=== PATIENT | female | born 1955 | race African-American/Black ===

== ENCOUNTER 2017-04-06 08:42 | Emergency (ER) | payer MEDICARE, MEDICAID ==
[~2017-04-06] VITALS: Ht 167.6 cm; Wt 61.0 kg
[~2017-04-06 08:42] MED LIST: CARB200T PO; GABA800T PO; OXYC-159 PO
[2017-04-06] MEDS ORDERED: ONDANSETRON HCL 4MG/2ML VIAL IV STA (09:55)
[2017-04-06] MEDS ORDERED: SODIUM CHLORIDE 0.9% 1,000 ML IV ONE ×2 (09:55→11:07)
[2017-04-06 10:16] LABS: HEMATOCRIT. 48.4 % (36.0-48.0); HEMOGLOBIN. 15.5 g/dL (12.0-16.0); MEAN CORPUSCULAR HEMOGLOBIN 30.2 pg (28.0-32.0); MEAN CORPUSCULAR VOLUME 94.4 fL (81.0-99.0); MEAN PLATELET VOLUME 8.6 fl (7.4-10.4); PLATELET 278 x1000/uL (130-400); RED BLOOD CELL COUNT 5.13 mill/uL (4.2-5.4); RED CELL DISTRIBUTION WIDTH 13.6 % (11.6-14.6)
[2017-04-06 10:20] LABS: PROTHROMBIN TIME 10.7 sec (9.4-11.6)
[2017-04-06 10:27] LABS: CLARITY URINE CLEAR (CLEAR); COLOR URINE YELLOW (YELLOW); GLUCOSE URINE 2+ (NEGATIVE); KETONES URINE NEGATIVE (NEGATIVE); LEUKOCYTE ESTERASE URINE NEGATIVE (NEGATIVE); NITRITE URINE NEGATIVE (NEGATIVE); OCCULT BLOOD URINE NEGATIVE (NEGATIVE); PH URINE 5.5 (4.5-8.0); PROTEIN URINE 1+ (NEGATIVE); SPECIFIC GRAVITY URINE 1.036 (1.005-1.030); UROBILINOGEN URINE 0.2 E.U./dL (0.2-1.0)
[2017-04-06 10:27] LABS: CARBON DIOXIDE 29 mEq/L (21-32); CHLORIDE 104 mEq/L (98-107); ETHANOL BLOOD < 10 mg/dL
[2017-04-06 10:44] LABS: *AMPHETAMINES SCREEN URINE NEGATIVE (NEGATIVE); *BARBITURATES SCREEN URINE NEGATIVE (NEGATIVE); *BENZODIAZEPINES SCREEN URINE NEGATIVE (NEGATIVE); *COCAINE SCREEN URINE PRESUMTIVE POSITIVE (NEGATIVE); CANNABINOID URINE SCREEN PRESUMTIVE POSITIVE (NEGATIVE); METHADONE URINE SCREEN NEGATIVE (NEGATIVE); OPIATES URINE SCREEN NEGATIVE (NEGATIVE); PHENCYCLIDINE URINE SCREEN NEGATIVE (NEGATIVE)
[2017-04-06 11:12] LABS: PLATELET ESTIMATE NORMAL
[2017-04-06] MEDS ORDERED: CARBAMAZEPINE 200MG TABLET PO ONE (11:30)
[2017-04-06 12:40] VITALS: BP 128/66
== END 2017-04-06 12:52 | disposition home or self-care (01) ==
LOC: ER 08:57
DX: F19.10 Other psychoactive substance abuse, uncomplicated (principal); I10 Essential (primary) hypertension; R56.9 Unspecified convulsions; R11.2 Nausea with vomiting, unspecified; Z88.5 Allergy status to narcotic agent
CPT/HCPCS: 36415; 74176; 80053; 80156; 80305; 81001; 83690; 85025; 85610; 96361; 96374; 99285; G0482; J2405; J7030

== ENCOUNTER 2017-05-19 13:58 | Emergency (ER) | payer MEDICARE, MEDICAID ==
[~2017-05-19] VITALS: Ht 165.1 cm; Wt 82.0 kg
[2017-05-19 16:25] VITALS: BP 106/62
== END 2017-05-19 19:24 | disposition left against medical advice (07) ==
LOC: ER 15:42
DX: M79.674 Pain in right toe(s) (principal); Z53.21 Procedure and treatment not carried out due to patient leaving prior to being seen by health care provider

== ENCOUNTER 2018-02-13 06:32 | Inpatient (IN) | payer MEDICARE, MEDICAID ==
[~2018-02-13] VITALS: Ht 165.1 cm; Wt 90.7 kg
[2018-02-13] MEDS ORDERED: LACTATED RINGERS 1,000 ML IV SCH (06:45)
[2018-02-13 07:50] LABS: HEMOGLOBIN 13.1 g/dL (12.0-16.0); MEAN CORPUSCULAR HEMOGLOBIN 31.5 pg (28.0-32.0); MEAN CORPUSCULAR VOLUME 95.9 fL (81.0-99.0); PLATELET 256 x1000/uL (130-400); RED BLOOD CELL COUNT 4.17 mill/uL (4.2-5.4); RED CELL DISTRIBUTION WIDTH 12.8 % (11.6-14.6)
[2018-02-13 07:56] LABS: CLARITY URINE CLEAR (CLEAR); COLOR URINE YELLOW (YELLOW); KETONES URINE NEGATIVE (NEGATIVE); LEUKOCYTE ESTERASE URINE NEGATIVE (NEGATIVE); NITRITE URINE NEGATIVE (NEGATIVE); OCCULT BLOOD URINE NEGATIVE (NEGATIVE); PROTEIN URINE NEGATIVE (NEGATIVE); SPECIFIC GRAVITY URINE 1.019 (1.005-1.030); UROBILINOGEN URINE 0.2 E.U./dL (0.2-1.0)
[2018-02-13 08:00] LABS: PARTIAL THROMBOPLASTIN TIME 27.1 sec (23.4-31.0); PROTHROMBIN TIME 9.9 sec (9.1-11.1)
[2018-02-13 08:03] LABS: CHLORIDE 108 mEq/L (98-107)
[2018-02-13] MEDS ORDERED: TRANEXAMIC ACID 1,000 MG in SODIUM CHLORIDE 0.9% 100 ML IV NR (08:30)
[2018-02-13] MEDS ORDERED: BUPIVACAINE HCL/DEXTROSE/PF 0.75% 2ML AMP INJ ONE (08:30)
[2018-02-13] MEDS ORDERED: METHYLENE BLUE 50 MG/10 ML AMP IV ONE (09:34)
[2018-02-13] MEDS ORDERED: MORPHINE SULFATE/PF 1MG/ML 10ML AMP ONE (09:34)
[2018-02-13] MEDS ORDERED: BUPIVACAINE/EPINEPH/PF 0.25%/0.0005 10ML ONE (09:34)
[2018-02-13] MEDS ORDERED: BACITRACIN 50,000 UNITS/VIAL ONE (09:35)
[2018-02-13] MEDS ORDERED: EPINEPHRINE 1:1000 1 MG/ML AMP ONE (09:35)
[2018-02-13] MEDS ORDERED: NORMAL SALINE 0.9% 10 ML SYR ONE (09:36)
[2018-02-13] MEDS ORDERED: MIDAZOLAM HCL 2 MG/2 ML VIAL ONE (09:41)
[2018-02-13] MEDS ORDERED: ROCURONIUM BROMIDE 10MG/ML VIAL 5ML IV ONE (09:41)
[2018-02-13] MEDS ORDERED: PROPOFOL 200MG/20ML VIAL IV ONE ×2 (09:41→12:48)
[2018-02-13] MEDS ORDERED: FENTANYL CITRATE/PF 50MCG/ML 2ML VIAL ONE (09:41)
[2018-02-13] MEDS ORDERED: NEOSTIGMINE METHYLSULFATE 1MG/ML 10 ML VIAL ONE (09:41)
[2018-02-13] MEDS ORDERED: GLYCOPYRROLATE 0.2 MG/ML 2ML VIAL ONE (09:42)
[2018-02-13] MEDS ORDERED: LIDOCAINE HCL/PF 1% 10 MG/ML 5ML VIAL ONE (09:43)
[2018-02-13] MEDS ORDERED: SUCCINYLCHOLINE CHLORIDE 200MG/10ML IV ONE (09:43)
[2018-02-13] MEDS ORDERED: ONDANSETRON HCL 4MG/2ML INJ ONE (09:43)
[2018-02-13] MEDS ORDERED: METOCLOPRAMIDE HCL 10MG/2ML VIAL ONE (09:43)
[2018-02-13] MEDS ORDERED: CEFAZOLIN SODIUM 1000MG/VIAL ONE (09:43)
[2018-02-13] MEDS ORDERED: ROPIVACAINE HCL 10MG/ML 20 ML VIAL EPI ONE (09:59)
[2018-02-13] MEDS ORDERED: NAPR220T66 PO (11:17)
[2018-02-13] MEDS ORDERED: VANCOMYCIN HCL 500 MG/VIAL ONE (11:42)
[2018-02-13] MEDS ORDERED: GENTAMICIN SULF 40MG/ML 2ML VIAL ONE (11:45)
[2018-02-13] MEDS ORDERED: SODIUM CHLORIDE 0.9% 1,000 ML IV ONE (13:07)
[2018-02-13] MEDS ORDERED: ONDANSETRON HCL 4MG/2ML INJ IV PRN ×2 (13:15→13:45)
[2018-02-13] MEDS ORDERED: MEPERIDINE HCL/PF 25MG/ML CPJ IV PRN ×2 (13:15)
[2018-02-13] MEDS ORDERED: HYDROMORPHONE HCL/PF 2MG/ML CPJ IV PRN (13:15)
[2018-02-13 13:20] VITALS: BP 122/68
[2018-02-13] MEDS ORDERED: MORPHINE SULFATE 2 MG/ML CPJ (NOT FOR IM USE) IV PRN (13:45)
[2018-02-13] MEDS ORDERED: MORPHINE SULFATE 4 MG/ML CPJ (NOT FOR IM USE) IV PRN (13:45)
[2018-02-13] MEDS ORDERED: MAGNESIUM HYDROXIDE 400MG/5ML 30ML UDC PO PRN (13:45)
[2018-02-13] MEDS ORDERED: HYDROCODONE/ACETAMINOPHEN 10/325MG TABLET PO PRN (13:45)
[2018-02-13] MEDS ORDERED: ACETAMINOPHEN 325MG TABLET PO PRN (13:45)
[2018-02-13 15:20] VITALS: BP 122/68
[2018-02-13] MEDS: HYDROCODONE/ACETAMINOPHEN 10/325MG TABLET PO PRN ×2 (17:41→22:28)
[2018-02-13] MEDS: FERROUS SULFATE 325MG TABLET PO SCH (18:19)
[2018-02-13] MEDS: DOCUSATE SODIUM 100MG CAPSULE PO SCH (18:19)
[2018-02-13] MEDS: CARBAMAZEPINE 200MG TABLET PO SCH (18:19)
[2018-02-13] MEDS: GABAPENTIN 400MG CAPSULE PO SCH (18:21)
[2018-02-13 20:00] VITALS: BP 109/61
[2018-02-13] MEDS ORDERED: ZOLPIDEM TARTRATE 5MG TABLET PO PRN (21:00)
[2018-02-13] MEDS: CEFAZOLIN 2,000 MG in DEXT 5% WATER 100 ML IV SCH (22:27)
[2018-02-14] VITALS: BP 116/61
[2018-02-14 04:00] VITALS: BP 122/55
[2018-02-14] MEDS: CEFAZOLIN 2,000 MG in DEXT 5% WATER 100 ML IV SCH (05:04)
[2018-02-14] MEDS: HYDROCODONE/ACETAMINOPHEN 10/325MG TABLET PO PRN ×3 (05:04→13:43)
[2018-02-14] MEDS: GABAPENTIN 400MG CAPSULE PO SCH ×3 (05:13→16:27)
[2018-02-14 08:00] VITALS: BP 109/73
[2018-02-14 08:25] LABS: BASOPHILS % 0.2 % (0.0-2.0); EOSINOPHILS % 1.6 % (0.0-5.0); HEMATOCRIT. 34.9 % (36.0-48.0); HEMOGLOBIN. 11.4 g/dL (12.0-16.0); LYMPHOCYTES % 13.3 % (20.0-50.0); MEAN CORPUSCULAR HEMOGLOBIN 31.6 pg (28.0-32.0); MEAN CORPUSCULAR VOLUME 96.2 fL (81.0-99.0); MEAN PLATELET VOLUME 8.7 fl (7.4-10.4); MONOCYTES % 8.9 % (2.0-8.0); PLATELET 235 x1000/uL (130-400); RED BLOOD CELL COUNT 3.63 mill/uL (4.2-5.4); RED CELL DISTRIBUTION WIDTH 12.8 % (11.6-14.6)
[2018-02-14] MEDS: CARBAMAZEPINE 200MG TABLET PO SCH ×3 (09:16→16:27)
[2018-02-14] MEDS: DOCUSATE SODIUM 100MG CAPSULE PO SCH ×2 (09:16→16:28)
[2018-02-14] MEDS: FERROUS SULFATE 325MG TABLET PO SCH ×3 (09:16→16:28)
[2018-02-14] MEDS: ENOXAPARIN 30MG/0.3ML SYR SUBCUT SCH ×2 (09:18→21:12)
[2018-02-14 10:23] LABS: CHLORIDE 106 mEq/L (98-107)
[2018-02-14 10:47] LABS: PHOSPHORUS 2.7 mg/dL (2.5-4.9)
[2018-02-14 12:00] VITALS: BP 126/64
[2018-02-14 16:00] VITALS: BP 138/58
[2018-02-14] MEDS: HYDROMORPHONE HCL/PF 2MG/ML CPJ IV PRN ×2 (16:28→21:11)
[2018-02-14] MEDS ORDERED: DOCUSATE SODIUM 100MG CAPSULE PO SCH (17:00)
[2018-02-14 20:00] VITALS: BP 147/57
[2018-02-15] VITALS (7 sets, daily range): BP systolic 104–142; BP diastolic 58–77
[2018-02-15] MEDS: HYDROMORPHONE HCL/PF 2MG/ML CPJ IV PRN ×3 (01:31→15:16)
[2018-02-15 05:15] LABS: CHLORIDE 104 mEq/L (98-107)
[2018-02-15 06:14] LABS: BASOPHILS % 0.2 % (0.0-2.0); EOSINOPHILS % 0.8 % (0.0-5.0); HEMATOCRIT. 33.3 % (36.0-48.0); HEMOGLOBIN. 11.1 g/dL (12.0-16.0); LYMPHOCYTES % 15.8 % (20.0-50.0); MEAN CORPUSCULAR HEMOGLOBIN 31.8 pg (28.0-32.0); MEAN CORPUSCULAR VOLUME 95.8 fL (81.0-99.0); MEAN PLATELET VOLUME 8.8 fl (7.4-10.4); MONOCYTES % 10.6 % (2.0-8.0); NEUTROPHILS % 72.6 % (40.0-76.0); PLATELET 270 x1000/uL (130-400); RED BLOOD CELL COUNT 3.48 mill/uL (4.2-5.4); RED CELL DISTRIBUTION WIDTH 12.6 % (11.6-14.6)
[2018-02-15] MEDS: HYDROCODONE/ACETAMINOPHEN 10/325MG TABLET PO PRN (06:19)
[2018-02-15] MEDS: CARBAMAZEPINE 200MG TABLET PO SCH ×3 (08:04→17:15)
[2018-02-15] MEDS: GABAPENTIN 400MG CAPSULE PO SCH ×3 (08:04→17:15)
[2018-02-15] MEDS: FERROUS SULFATE 325MG TABLET PO SCH ×3 (08:05→17:15)
[2018-02-15] MEDS: DOCUSATE SODIUM 100MG CAPSULE PO SCH ×2 (08:05→17:15)
[2018-02-15] MEDS: ENOXAPARIN 30MG/0.3ML SYR SUBCUT SCH (08:05)
== END 2018-02-15 17:58 | disposition home health service (06) | DRG 470 ==
LOC: ORIP 06:32 → 6EST 16:09
PROVIDERS: ADMIT Internal Medicine; ATTEND Internal Medicine
PROC: 0SRD0J9 Replacement of Left Knee Joint with Synthetic Substitute, Cemented, Open Approach (ICD-10-PCS; principal; 2018-02-13 09:30)
DX: M17.12 Unilateral primary osteoarthritis, left knee (principal); G50.0 Trigeminal neuralgia; E87.8 Other disorders of electrolyte and fluid balance, not elsewhere classified; D64.9 Anemia, unspecified; M21.062 Valgus deformity, not elsewhere classified, left knee; G89.4 Chronic pain syndrome; M65.9 Synovitis and tenosynovitis, unspecified; Z96.651 Presence of right artificial knee joint; Z88.5 Allergy status to narcotic agent
CPT/HCPCS: 36415; 71045; 73560; 80048; 83735; 84100; 85027; 86850; 86900; 88305; 88311; 97110; 97116; 97162; 97166; 97530; 97535; A4216; C1713; C1776; J0171; J0330; J0690; J1170; J1580; J1650; J2250; J2274; J2405; J2704; J2710; J2765; J2795; J3010; J3370; J3490; J7030; J7050; J7060; J7120; L1830; Q9968